=== PATIENT | female | born 1940 | race Caucasian/White ===

== ENCOUNTER → 2016-05-05 | Outpatient (CLI) | payer MEDICARE, OTHER ==
[2013-12-27 15:00] VITALS: BP 109/46
[~2016-05-05] MED LIST: ASCO1TAB2 PO; ASPI-482 PO; CELE200C PO; CHOL10003 PO; FERR-26 PO; FISH1CAP PO; IOHEXOL 180 MG/ML 10 ML VIAL. ONE; LEVO5TAB2 PO; LISI1TAB5 PO; METF500T4 PO; MULT-212 PO; OMEG1CAP28 PO; OXYC-323 PO; Oxycodone Hcl/Acetaminophen PO; TRAM50TA PO; TRAZ50TA15 PO; WARF5TAB PO; WOMENS ONE A DAY; Warfarin Sodium MC; methylPREDNISolone ACETATE 40 MG/ML VIAL. ONE; methylPREDNISolone ACETATE 80 MG/ML VIAL. ONE
--- NOTE | 2016-05-06 01:01 | PN ---
DATE: 05/05/2016 DIAGNOSES: Lumbar radiculopathy with lumbar degenerative disk disease, spondylosis and low back pain. HISTORY OF PRESENT ILLNESS: The patient is a 76-year-old female who returns for followup, last seen on 01/27/2016. The patient underwent lumbar epidural steroid injection at that time with very good results. The patient reports about 75%-80% improvement for about the first month and a half after the injection. The patient reports pain which was returning then in the low back and lower extremities, but not to a significant extent where she has been able to put this off for a few months and returns today with significant pain now building up over the past 2-3 weeks in the low back, left lower extremity greater than the right, but present bilaterally with some pain in neck, but doing better with physical therapy with the neck after this, still significant pain in the low back, bilateral lower extremities, mostly in the posterior lateral, anterior thighs, more on the left than the right, worse with standing and walking, ranges from 4-6 on a scale of 10, is hard to sit for prolonged periods, hard to stand or walk for prolonged periods, greater than 20-30 minutes. The patient reports it does not awaken her from sleep at night. She feels better with lying down. The patient reports no new motor or sensory deficits, no bowel or bladder incontinence or other complaints. PHYSICAL EXAMINATION: VITAL SIGNS: The patient's blood pressure is 95/56, pulse 79, respirations 18, and temperature 97.9 degrees Fahrenheit. Height is 5 feet 6 inches, weighs 173 pounds. GENERAL: The patient is awake, alert, oriented, appropriate, very pleasant demeanor. HEENT: Head shows normocephalic, atraumatic. Extraocular movements are intact, symmetrical. Oral cavity, mucous membranes are moist and pink. Dentition is intact. NECK: Shows anterior throat supple without palpable lymphadenopathy noted. Swallow reflex is symmetrical. CHEST: Shows normal on inspection. Breath sounds clear to auscultation bilaterally. HEART: Shows S1 and S2 clear. No murmurs are auscultated. ABDOMEN: Soft, nontender, and nondistended. No palpable organomegaly is noted. No rebound or guarding demonstrated. BACK: Shows spine grossly in midline. Lumbar paraspinous musculature shows some symmetry with the appearance, but with palpation shows some moderate tenderness, more on the left than the right in the lower lumbar distribution, but without radiation, without trigger points. No tenderness over the sacrum or sacroiliac regions. Lower extremities showed deep tendon reflexes 1+ in the patellar and tendo calcaneus tendons. Motor exam is strong with dorsiflexion, extension, quadriceps and hamstring flexion rated 5/5 and equal. Options were discussed with the patient. The patient's old chart was reviewed and her current medication regimen and updated, current review of systems updated today as well. We will proceed with a third in the series of lumbar epidural steroid injection with fluoroscopic guidance. Risks were again discussed including, but not limited to bleeding, infection, possibility of epidural hematoma, subsequent neurologic compromise, dural puncture, headaches, spinal cord and/or nerve damage, side effects to steroid medication and poor results regarding pain control. The patient understands and wishes to proceed. The patient will return to clinic in approximately 2 weeks for followup, was counseled on return appointment, activity level and side effects to be aware of. DIAGNOSIS: Lumbar radiculopathy with lumbar degenerative disk disease and lumbar spondylosis. PROCEDURES: Lumbar epidural steroid injection using C-arm fluoroscopic guidance under sterile prep and drape using local anesthetic, translaminar approach at the L4-L5 level. MEDICATION INJECTED: Depo-Medrol 120 mg plus 10 mL of preservative-free normal saline and 2 mL of Isovue for contrast. CONDITION AT DISCHARGE: Stable. The patient tolerated procedure well, had no complications. CIARAN MAGALLANES MD DR: JOHN/rojas JOB#: [id number] / [id number]
== END | disposition home or self-care (01) ==
LOC: PNCL 11:13
PROVIDERS: ATTEND Anesthesiology
DX: M51.16 Intervertebral disc disorders with radiculopathy, lumbar region (principal); M47.26 Other spondylosis with radiculopathy, lumbar region; I10 Essential (primary) hypertension; E11.9 Type 2 diabetes mellitus without complications; M19.90 Unspecified osteoarthritis, unspecified site; Z87.39 Personal history of other diseases of the musculoskeletal system and connective tissue; Z96.611 Presence of right artificial shoulder joint
CPT/HCPCS: 62323; J1030; J1040

== ENCOUNTER → 2016-08-08 | Outpatient (CLI) | payer MEDICARE, OTHER ==
[2013-12-27 15:00] VITALS: BP 109/46
[~2016-08-08] MED LIST changes: +WARF-78 PO; -WARF5TAB PO
--- NOTE | 2016-08-09 01:54 | PAIN ---
DATE OF SERVICE: 08/08/2016 PROGRESS NOTE FOR PAIN CLINIC DIAGNOSES: Lumbar radiculopathy with lumbar degenerative disk disease and lumbar spondylosis. HISTORY OF PRESENT ILLNESS: The patient is a 76-year-old female who returns for followup status post lumbar epidural steroid injection x 1, 05/05/2016. The patient reports she did very well with about a 75% improvement with the first injection, but the pain is returning now over the past week or two in the low back, bilateral lower extremities, worse on the right than the left with some posterior gluteus, posterior lateral thigh, lateral anterior thigh, pain also in the left foot, but worse on the right side. The patient reports it is tingling, burning, sharp, radiating and constant. The patient reports it awakens her from sleep occasionally, but not all the times. She sleeps about 7-8 hours most nights and usually feels better with lying down or sitting, worse with standing and walking with the pain in back and leg. The patient reports the pain as 6 on a scale of 10 at its worst. It is 5 currently. PHYSICAL EXAMINATION: VITAL SIGNS: The patient's blood pressure 114/54, pulse 75, respirations are 20, temperature is 98.2 degrees Fahrenheit, weight is 172 pounds. GENERAL: The patient is awake, alert, oriented, appropriate, very pleasant demeanor. HEENT: Head normocephalic, atraumatic. Extraocular movements are intact, symmetrical. Oral cavity, mucous membranes are moist and pink. Dentition intact. NECK: Shows anterior throat supple. CHEST: Shows normal on inspection. Breath sounds clear to auscultation bilaterally. HEART: Shows S1 and S2 clear. ABDOMEN: Soft, nontender, nondistended. No palpable organomegaly is noted. No rebound or guarding demonstrated. BACK: Shows spine grossly midline. Slight exaggeration of thoracic kyphosis and mild flattening of lumbar lordotic curvature. Lumbar paraspinous muscle shows symmetrical on inspection, with palpation shows some mild tenderness, but only diffusely in the middle and lower lumbar distribution in the paraspinous muscles without radiation. No tenderness over the sacrum or sacroiliac regions. The patient has good rotational motion of the lumbar spine, both laterally as well as extension and flexion without difficulty or pain reported. EXTREMITIES: The patient's lower extremities show deep tendon reflexes 1+ in the patellar and tendo calcaneus tendons are equal. Motor exam is strong with 5/5 dorsiflexion, extension, quadriceps and hamstring flexion and symmetrical as well. Options were discussed with the patient. The patient's old chart was reviewed as her current medication regimen updated. Current review of systems updated today as well. We will proceed with a second in this series of lumbar epidural steroid injection with fluoroscopic guidance. Risks were again discussed including, but not limited to, bleeding, infection, possibility of epidural hematoma, subsequent neurologic compromise, dural puncture, headaches, spinal cord and/or nerve damage, side effects of steroid medication and poor results regarding pain control. The patient understands and wishes to proceed. The patient will return to the clinic in approximately 2 weeks for followup. She was counseled on return appointment, activity level, side effects to be aware of. CIARAN MAGALLANES MD DR: JOHN/rojas JOB#: [id number] / [id number]
== END | disposition home or self-care (01) ==
LOC: PNCL 09:03
PROVIDERS: ATTEND Anesthesiology
DX: M51.16 Intervertebral disc disorders with radiculopathy, lumbar region (principal); M47.26 Other spondylosis with radiculopathy, lumbar region; M19.90 Unspecified osteoarthritis, unspecified site; I10 Essential (primary) hypertension; Z86.69 Personal history of other diseases of the nervous system and sense organs; Z96.611 Presence of right artificial shoulder joint; Z86.39 Personal history of other endocrine, nutritional and metabolic disease; Z83.3 Family history of diabetes mellitus; Z88.8 Allergy status to other drugs, medicaments and biological substances; Z91.048 Other nonmedicinal substance allergy status
CPT/HCPCS: 62323; J1030; J1040

== ENCOUNTER → 2016-09-26 | Outpatient (CLI) | payer MEDICARE, OTHER ==
[2013-12-27 15:00] VITALS: BP 109/46
[~2016-09-26] MED LIST changes: -IOHEXOL 180 MG/ML 10 ML VIAL. ONE; -methylPREDNISolone ACETATE 40 MG/ML VIAL. ONE; -methylPREDNISolone ACETATE 80 MG/ML VIAL. ONE
--- NOTE | 2016-09-26 13:16 | KCIC ---
INDICATION: Low back pain and right radiculopathy for a few months. TECHNIQUE: Sagittal T1, sagittal T2, sagittal STIR, axial T1, and axial T2 sequences are provided. Comparison is from March 03, 2015. FINDINGS: Localizing study demonstrates mild S-shaped curvature of the lower thoracic and lumbar spine. There is also anterolisthesis at L4-L5 measuring 5 mm. Endplate edema which appears degenerative is noted at L4-L5 on the right. There is no worrisome marrow lesion. There is a small Schmorl's node in the inferior endplate of L4. There is diffuse disc desiccation. There is narrowing of disc height at L5-S1. The conus medullaris is normal in signal intensity and in position. The numbering system assumes 5 lumbar type vertebral bodies. Findings by individual level are as follows: L1-L2: Disc bulge is noted without canal or foraminal compromise. L2-L3: Protrusion on the left extends foraminal and extraforaminal. This is superimposed on a mild disc bulge. Protrusion is decreased in size. There is minimal facet hypertrophy. There is no canal stenosis. There is mild left foraminal narrowing. L3-L4: Disc bulge and mild facet and ligamentum flavum hypertrophy are noted. There is no canal or foraminal compromise. L4-L5: There is a disc bulge in addition to the anterolisthesis. There is facet and ligamentum flavum hypertrophy. There is again mild canal stenosis with lateral recess narrowing. Foraminal narrowing is again zevi-lo-eczbbjkw on the right and minimal on the left, exiting nerve root on the right is compressed. L5-S1: Disc osteophyte complex and facet hypertrophy are noted with mild foraminal narrowing. IMPRESSION: 1. Degenerative disc disease and facet and ligamentum flavum hypertrophy again are noted throughout the lumbar spine. There is no high-grade canal stenosis. The protrusion at L2-L3 is decreased in size, degenerative findings are otherwise relatively stable. Electronically signed by: Wilfred Rosales MD (09/26/2016 1:13 PM) [facility]
== END | disposition home or self-care (01) ==
LOC: KCIC MRI 12:16
PROVIDERS: ATTEND Physician Assistant Medical
DX: M51.36 Other intervertebral disc degeneration, lumbar region (principal)
CPT/HCPCS: 72148

== ENCOUNTER → 2016-11-07 | Outpatient (CLI) | payer MEDICARE, OTHER ==
[2013-12-27 15:00] VITALS: BP 109/46
[2016-11-07 15:53] LABS: BASO # 0.1 x10^3/uL (0.0-0.2); BASO % 1 % (0-3); EOS % 7 % (0-3); HEMATOCRIT 39.7 % (36.0-47.0); HEMOGLOBIN 13.4 g/dL (12.0-15.5); LYMPH # 2.1 x10^3/uL (1.0-4.8); LYMPH % 28 % (24-48); MEAN CORPUSCULAR HEMOGLOBIN 31 pg (25-35); MEAN CORPUSCULAR HGB CONC 34 g/dL (31-37); MEAN CORPUSCULAR VOLUME 91 fL (79-100); MONO % 6 % (0-9); NEUT % 58 % (31-73); PLATELET COUNT 285 x10^3/uL (140-400); RED BLOOD COUNT 4.38 x10^6/uL (3.50-5.40); WHITE BLOOD COUNT 7.4 x10^3/uL (4.0-11.0)
[2016-11-07 16:07] LABS: PROTHROMBIN TIME PATIENT 12.8 SEC (11.7-14.0)
== END | disposition home or self-care (01) ==
LOC: SURGPAT 13:25
PROVIDERS: ATTEND Neurological Surgery
DX: M48.06 Spinal stenosis, lumbar region (principal)
CPT/HCPCS: 36415; 83036; 85025; 85610; 85730; 87641

== ENCOUNTER → 2017-11-14 | Outpatient (CLI) | payer MEDICARE, OTHER ==
[2016-11-23 11:17] VITALS: BP 136/57
[~2017-11-14] MED LIST changes: -FERR-26 PO; +FERR325T14 PO; +METF500T16 PO; -METF500T4 PO; +METH-38 PO; +OXYC5TAB95 PO; +SENN-37 PO; +TRAZ-85 PO; -TRAZ50TA15 PO
--- NOTE | 2017-11-14 13:53 | KCIC ---
MRI Lumbar Spine without contrast History: Low back pain, previous surgery, right knee and leg pain Technique: Multiplanar, multi sequential noncontrast MR imaging was performed of the lumbar spine. Contrast: None as per request Comparison: September 26, 2016 Findings: There is again mild grade 1 anterior spondylolisthesis L4-5 although somewhat less prominent. There is now posterolateral fusion hardware with bilateral pedicle screws at L4-L5. Exam does not accurately evaluate integrity of hardware. There is again more advanced degenerative disc disease at L5-S1, trda-cu-jyckbmpe degenerative disc disease L2-L3 and to lesser degree at L3-4, minimally at L4-5. There is also degenerative disc disease of visualized inferior thoracic levels. L2-3 degenerative disc disease is somewhat greater in interval. There is increased L2-3 endplate edema, also trace edema of the anterior corners of T12-L1 probably reactive/degenerative in etiology. Conus terminates at the superior aspect L2. There is nonspecific fluid collection at site of posterior decompression at L4-5 on the order of about 3.8 cm CC by 2 cm AP by 2.7 cm transverse, does not result in significant mass effect upon the thecal sac. There is other amorphous edema of the posterior paraspinous soft tissues extending more inferiorly. There is a tiny T2 hyperintense lesion of the right kidney 0.5 cm otherwise too small to accurately characterize. L1-L2: There is again minimal posterior bulge. There is minimal buckling of the ligamentum flavum. Neural foramina and spinal canal are adequate. L2-L3: There is again disc osteophyte complex and minimal bulge, new shallow protrusion in the far left lateral recess. There is increased mild narrowing of the far left lateral recess. There is posterior annular tear. There is mild narrowing of the left neural foramen, right neural foramen adequate. There is mild buckling of the ligamentum flavum and mild to moderate facet degenerative change. L3-L4: There is minimal disc osteophyte complex and bulge, minimal slightly more prominent. There is mild buckling of the ligamentum flavum and krch-cf-uepinvqh facet degenerative change. There is increased mild narrowing of the far lateral recesses bilaterally. There is minimal narrowing of the neural foramina greater on the right. L4-L5: There has been interval posterior decompression, spinal canal now adequate at this level. Neural foramina are now overall adequate. L5-S1: There is again bilateral facet degenerative change and minimal buckling of the ligamentum flavum. There is negligible disc osteophyte complex. Spinal canal is adequate. Left neural foramen is adequate. Right neural foramen is somewhat poorly evaluated due to artifact created by hardware, possible minimal narrowing. Impression: 1. There is now posterolateral fusion hardware L4-5, interval posterior decompression at this level. Spinal canal is now adequate at this level, nonspecific fluid collection posteriorly at site of posterior decompression of uncertain sterility. There is other nonspecific edema of the posterior paraspinous soft tissues extending more inferiorly. 2. There is increased mild narrowing the far lateral recesses bilaterally at L3-4 and also increased mild narrowing of the far left lateral recess by shallow protrusion at L2-3. 3. There is mild neural foramina compromise bilaterally at L3-L4 and on the left at L2-3, also probable minimal narrowing on the right at L5-S1. 4. There is grade 1 anterior spondylolisthesis at L4-5 although slightly less prominent. 5. There is again advanced degenerative disc disease at L5-S1. There has been interval progression of degenerative disc disease at L2-3, mild endplate edema probably reactive/degenerative in etiology. Electronically signed by: Jose Garay MD (11/14/2017 1:49 PM) [facility]
== END | disposition home or self-care (01) ==
LOC: KCIC MRI 12:50
PROVIDERS: ATTEND Physician Assistant Medical
DX: M51.37 Other intervertebral disc degeneration, lumbosacral region (principal); M51.36 Other intervertebral disc degeneration, lumbar region; M51.26 Other intervertebral disc displacement, lumbar region; M48.061 Spinal stenosis, lumbar region without neurogenic claudication; M43.16 Spondylolisthesis, lumbar region; M25.78 Osteophyte, vertebrae; R60.0 Localized edema; I10 Essential (primary) hypertension; Z85.3 Personal history of malignant neoplasm of breast; Z96.611 Presence of right artificial shoulder joint; Z86.39 Personal history of other endocrine, nutritional and metabolic disease; Z87.39 Personal history of other diseases of the musculoskeletal system and connective tissue; Z86.69 Personal history of other diseases of the nervous system and sense organs; Z88.8 Allergy status to other drugs, medicaments and biological substances; Z83.3 Family history of diabetes mellitus
CPT/HCPCS: 72148

== ENCOUNTER 2020-11-17 06:08 | Day surgery (SDC) | payer MEDICARE, OTHER ==
[~2020-11-17] VITALS: Ht 167.6 cm; Wt 80.4 kg
[~2020-11-17 06:08] MED LIST changes: +ALLO300T PO; +HYDROmorphone 2 MG/ML VIAL IVP PRN; +IV RINGERS,LACTATED 1000ML 1,000 ML IV SCH; +LISI1TAB37 PO; -LISI1TAB5 PO; +MELO15TA23 PO; +MORPHINE SULFATE 2 MG/ML INJ. IVP PRN; +MULT-245 PO; -OXYC-323 PO; +OXYC1TAB15 PO; +OXYC5TAB4 PO; -OXYC5TAB95 PO; +PROCHLORPERAZINE 10 MG/2 ML VIAL. IVP PRN; +TRAZ-118 PO; -TRAZ-85 PO; -WARF-78 PO; +WARF5TAB2 PO; +[UNRECOGNIZED DRUG - OTHER] TOP; +fentaNYL PF VIAL 100 MCG/2 ML VIAL IVP PRN
[2020-11-17] MEDS ORDERED: INSULIN LISPRO 100 UNIT/ML 3ML VIAL for OP,RR ONLY. SQ PRN (06:45)
[2020-11-17 06:50] VITALS: BP 165/70
[2020-11-17] MEDS ORDERED: PROPOFOL 10 MG/ML (20ML) VIAL. IV ONE (06:58)
[2020-11-17] MEDS ORDERED: INSULIN LISPRO 100 UNIT/ML 3ML VIAL for OP,RR ONLY. SQ ONE (07:00)
[2020-11-17] MEDS ORDERED: LIDOCAINE 1% PF 30 ML VIAL. ONE (07:17)
--- NOTE | 2020-11-17 07:18 | DISCH ---
DISCHARGE INSTRUCTIONS Condition on Discharge Condition on Discharge: Stable Activity After Discharge Activity Instructions for Disc: Activity as tolerated Bathing Instructions: Shower-keep dressing dry, No Tub Bath until see Lifting Instructions after Dis: No heavy lifting Weight Bearing Status after Di: As tolerated Diet after Discharge Diet after Discharge: Diabetic No Calorie Level Wound Incision Care Wound/Incision Care: Ice to area for comfort, Change dressing (May remove dressing in 2 days may then shower no soaking until postoperative appointment and wound check) Wound Care Equipment: Dressings Checks after Discharge Checks after discharge: Check blood sugar, ac/hs Contacting the [facility] after DC Call your doctor for: Concerns you may have Follow-Up Follow up with: Dr. Mary or Edith 1 week Treatment/Equipment after DC Adaptive Equipment Issued: None AMEYA MARY MD Nov 17, 2020 07:18
--- NOTE | 2020-11-17 08:24 | PDOC4 ---
Operative Note Operative Note Date of surgery: 11/17/2020 Preoperative diagnosis: Right elbow mass Postoperative diagnosis: Same with some calcification of soft tissue and gouty deposit observed Operative procedure: Excision right elbow mass Surgeon: Usman Anesthesia: Local with sedation Assist: Vega Young Complications: None Estimated blood loss: 10 cc Specimens: Calcified tissue sent for permanent section and gouty deposit for culture and crystals Operative indications: Patient is a 80-year-old female with a freely mobile nonpainful right elbow mass unless she hits the elbow but it has been getting larger and of concern for her. Please see my orthopedic clinic note for detailed operative indications and note that we covered the possibility of excision of the mass the possibility of infection recurrence continued pain medical or other anesthetic complications among others she wishes to proceed with surgical evaluation and treatment Operative text: Patient was identified procedure verified patient placed in supine position on the operating table. After adequate amounts of general anesthesia were administered the right upper extremity was prepped and draped in standard sterile fashion. After timeout was performed patient procedure identified and verified local anesthetic of half percent plain Marcaine was instilled throughout the periphery of the tissue surrounding the mass and an incision was made longitudinally over the midline of the mass over the lateral elbow with a length of about 3 cm. It was immediately observed that she had some gouty deposits present in the center surrounded by some calcified tissue in the subcutaneous area. The gouty deposit was sent for culture and crystal evaluation and the calcified tissue was sharply excised with a scalpel and sent for gross pathologic evaluation. Thorough irrigation carried out normal saline solution bleeding points controlled by electrocautery and any remaining residual gouty deposit was removed with rongeurs. Closure accomplished with buried Vicryl suture subcuticular Monocryl Steri-Strips Mastisol followed by sterile dressings. Patient was returned to recovery room in stable condition having tolerated procedure well. Vega Young delivery assistant assisted in patient positioning prepping draping retraction closure and dressings AMEYA RODRIGUEZ MD Nov 17, 2020 08:24
[2020-11-17 08:58] VITALS: BP 138/76
--- NOTE | 2020-11-18 16:11 | PATHOLOGY ---
[facility] Accession Number: [id number] . 01 Material submitted: . elbow - RIGHT ELBOW MASS. Modifiers: right . 01 Clinician provided ICD-10: 330R323380 . 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 (JPM:sourav; 11/18/2020) QMS 11/18/2020 1251 Local . 02 Comment: Tumoral calcinosis is a non-neoplastic condition characterized by joni-articular tumor-like calcium deposits most commonly surrounding the major joints, especially the hips, shoulders, and elbows. Tumoral calcinosis can be familial or sporadic, or it may occur in association with diseases causing metabolic calcium-phosphate imbalances. Correlate clinically. (JPM:sourav; 11/18/2020) . 02 Electronically signed: . Camilo Payne MD, Pathologist NPI- [id number] . 01 Gross description: . The specimen is received in formalin, labeled "Zealya, Vane, right elbow mass" and consists of 2 whitfield-brown, white, focally chalky and hemorrhagic, rubbery irregular tissues aggregating 1.9 x 1.6 x 0.9 cm. Sectioning reveals whitfield-schofield and focally chalky-white cut surfaces. Foam Rubber Curer sections are submitted in A1. (NOATAK; 11/17/2020) DKA/DKA 11/18/2020 1256 Local . 02 Pathologist provided ICD-10: E83.59 . 02 CPT . 557286 Specimen Comment: A courtesy copy of this report has been sent to [phone], [phone] Specimen Comment: [id number] Specimen Comment: Report sent to / DR LANCE Performed at: 01 [facility] [address], [place], [place] [id number] MD Yair Zambrano MD Phone: [phone] Performed at: 02 [facility] [address], [place] [id number] MD Camilo Payne MD Phone: [phone]
== END 2020-11-17 09:04 | disposition home or self-care (01) ==
LOC: SURG 06:08
PROVIDERS: ATTEND Orthopaedic Surgery
DX: R22.31 Localized swelling, mass and lump, right upper limb (principal); E83.59 Other disorders of calcium metabolism; I11.0 Hypertensive heart disease with heart failure; I50.9 Heart failure, unspecified; M19.90 Unspecified osteoarthritis, unspecified site; E11.9 Type 2 diabetes mellitus without complications; J43.9 Emphysema, unspecified; Z85.3 Personal history of malignant neoplasm of breast; Z87.891 Personal history of nicotine dependence; Z79.899 Other long term (current) drug therapy; Z79.84 Long term (current) use of oral hypoglycemic drugs; Z79.82 Long term (current) use of aspirin; Z98.890 Other specified postprocedural states; Z88.8 Allergy status to other drugs, medicaments and biological substances
CPT/HCPCS: 11403; 36415; 82962; 88305; A4209; A4364; A4930; A6402; J0690; J1815; J2704; J3490; A4452; A6452